=== PATIENT | male | born 1945 | race Caucasian/White ===

== ENCOUNTER 2018-12-31 00:05 | Observation (INO) ==
[2018-12-31 01:06] LABS: Basophils # 0.1 10*3/uL (0.0-0.2); Basophils % 1.1 % (0.0-0.8); Eosinophils # 0.3 10*3/uL (0.0-0.87); Hematocrit 38.5 VOL% (42.0-52.0); Hemoglobin 13.5 GM/DL (14.0-18.0); INR 0.9; Immature Granulocytes % 0.7 %; Immature Granulocytes Absolute 0.04 #; Lymphocytes # 1.9 10*3/uL (1.4-4.0); Lymphocytes % 34.6 % (21.2-54.2); Mean Corpuscular HGB Conc 35.1 GM/DL (32-36); Mean Corpuscular Volume 84.6 FL (87-102); Mean Platelet Volume 10.4 FL (9.6-12.0); Monocytes % 7.5 % (1.7-12.7); Neutrophils % 51.1 % (38.7-73.9); PT Patient Result 10.1 SECS (9.6-12.2); Platelet Count 231 T/CUMM (130-400); Red Blood Count 4.55 MC/CUMM (3.8-5.5); White Blood Count 5.4 T/CUMM (4-12)
[2018-12-31 01:29] LABS: Albumin 3.8 G/DL (3.4-5.0); Bilirubin,Total 0.5 MG/DL (0.2-1.0); Calcium 9.4 MG/DL (8.5-10.1); Total Protein 7.1 G/DL (6.4-8.3)
[2018-12-31] MEDS ORDERED: ACETAMINOPHEN 325 MG TABLET PO PRN (04:26)
[2018-12-31] MEDS ORDERED: DEXTROSE 50% 25 GM/50 ML VIAL IV PRN (04:26)
[2018-12-31] MEDS ORDERED: ONDANSETRON 4 MG/2 ML VIAL IV PRN (04:26)
[2018-12-31] MEDS ORDERED: GLUCAGON 1 MG VIAL IM PRN (04:26)
[2018-12-31] MEDS ORDERED: DOCUSATE SODIUM 100 MG CAPSULE PO PRN (04:26)
[2018-12-31 05:31] LABS: Apearance,Urine CLEAR (Clear); Bilirubin,Urine Negative (Negative); Blood, Urine Negative (Negative); Glucose,Urine (UA) >=500 mg/dL (Negative); Ketones,Urine Negative (Negative); Nitrite,Urine Negative (Negative); Protein,Urine Negative; RBC,Urine 1 /HPF (0-4); Urine Color Straw (Yellow); Urine Specific Gravity 1.003 (1.001-1.035); Urine Urobilinogen < 2.0 EU/DL (0.2-1.0); WBC,Urine <1 /HPF (0-6)
[2018-12-31 05:41] LABS: Basophils % 0.7 % (0.0-0.8); Eosinophils # 0.1 10*3/uL (0.0-0.87); Hematocrit 42.3 VOL% (42.0-52.0); Hemoglobin 14.1 GM/DL (14.0-18.0); Immature Granulocytes % 0.5 %; Immature Granulocytes Absolute 0.03 #; Lymphocytes # 1.3 10*3/uL (1.4-4.0); Lymphocytes % 22.4 % (21.2-54.2); Mean Corpuscular HGB Conc 33.3 GM/DL (32-36); Mean Corpuscular Volume 86.9 FL (87-102); Mean Platelet Volume 10.4 FL (9.6-12.0); Monocytes % 5.2 % (1.7-12.7); Neutrophils % 69.2 % (38.7-73.9); Platelet Count 267 T/CUMM (130-400); Red Blood Count 4.87 MC/CUMM (3.8-5.5); White Blood Count 5.6 T/CUMM (4-12)
[2018-12-31 06:08] LABS: Folate 10.4 NG/ML (5.4-24.0); Vitamin B12 376 PG/ML (211-911)
[2018-12-31 06:15] LABS: % Iron Saturation 14.2 % (18-50); Ferritin 91.1 ng/ml (26-388); Risk Ratio 5.21; Thyroid Stimulating Hormone 1.12 uIU/ml (0.358-3.74); VLDL CHOLESTEROL 31.4 MG/DL
[2018-12-31 07:15] LABS: Sedimentation Rate-Westergren 25 MM/HR (0-20)
[2018-12-31] MEDS: INSULIN LISPRO 100 UNIT/ML SUBCUT SCH ×2 (08:47→12:37)
[2018-12-31] MEDS ORDERED: PANTOPRAZOLE 40 MG TABLET PO SCH (09:00)
[2018-12-31] MEDS ORDERED: TAMSULOSIN 0.4 MG CAPSULE PO SCH (09:00)
[2018-12-31] MEDS ORDERED: Glucosam-Chon-Msm1-C-Mang-Bosw [Osteo Bi-Flex Triple Strength] 1 PO SCH (09:00)
[2018-12-31] MEDS ORDERED: ENOXAPARIN 40 MG/0.4 ML SYRINGE SUBCUT SCH (09:00)
[2018-12-31] MEDS ORDERED: MULTIVITAMIN (OCUVITE) TABLET PO SCH (09:00)
[2018-12-31] MEDS ORDERED: FERROUS SULFATE 325 MG TABLET PO SCH (12:00)
[2018-12-31] MEDS ORDERED: ASPIRIN EC 81 MG TABLET PO SCH (12:00)
[2018-12-31 16:27] VITALS: BP 116/70
[2019-01-01 10:30] LABS: Hemoglobin A1 (Alkaline) 97.7 % (96.5-98.5); Hemoglobin A2 (Alkaline) 2.3 % (1.5-3.5)
== END 2018-12-31 16:15 | disposition home or self-care (01) ==
LOC: EDBD → EDUNIT# → N.ED 00:05 → N.EDINP 00:05 → N.TELEN 03:08
PROVIDERS: ADMIT Internal Medicine; ATTEND Internal Medicine

== ENCOUNTER 2019-11-13 05:44 | Day surgery (SDC) ==
[2019-11-13] MEDS ORDERED: VANCOMYCIN 1,000 MG VIAL ONE (05:49)
[2019-11-13] MEDS ORDERED: ceFAZolin 1,000 MG VIAL ONE (05:49)
[2019-11-13] MEDS ORDERED: VANCOMYCIN INJ 1,000 MG in SODIUM CHLORIDE 0.9% 250 ML IV ONE (06:30)
[2019-11-13] MEDS ORDERED: ceFAZolin 1,000 MG in SYRINGE 1 EACH IV ONE (06:30)
[2019-11-13] MEDS ORDERED: FAMOTIDINE 20 MG TABLET PO ONE (06:32)
[2019-11-13] MEDS ORDERED: DIAZEPAM 5 MG TABLET PO ONE (06:32)
[2019-11-13] MEDS ORDERED: BACITRACIN OINT 0.9 GM PACK TOP ONE (06:36)
[2019-11-13] MEDS ORDERED: TRANEXAMIC ACID 1,000 MG/10 ML VIAL ONE (06:37)
[2019-11-13] MEDS ORDERED: FAMOTIDINE 20 MG TABLET ONE (06:39)
[2019-11-13] MEDS ORDERED: DIAZEPAM 5 MG TABLET ONE (06:39)
[2019-11-13] MEDS ORDERED: DEXAMETHASONE 4 MG/1 ML VIAL ONE (06:59)
[2019-11-13] MEDS ORDERED: ROPIVACAINE 0.5% 30 ML VIAL ONE (06:59)
[2019-11-13] MEDS ORDERED: LIDOCAINE 1% 5 ML VIAL ONE (06:59)
[2019-11-13] MEDS ORDERED: LACTATED RINGERS 1,000 ML IV SCH (07:00)
[2019-11-13] MEDS ORDERED: MAGNESIUM HYDROXIDE SUSP 30 ML UDCUP PO PRN (10:38)
[2019-11-13] MEDS ORDERED: diphenhydrAMINE CAP 25 MG CAPSULE PO PRN (10:38)
[2019-11-13] MEDS ORDERED: MORPHINE 4 MG/1 ML VIAL IV PRN (10:38)
[2019-11-13] MEDS ORDERED: ZALEPLON 5 MG CAPSULE PO PRN (10:38)
[2019-11-13] MEDS ORDERED: ONDANSETRON 4 MG/2 ML VIAL IV PRN (10:38)
[2019-11-13] MEDS ORDERED: DEXTROSE 50% 25 GM/50 ML VIAL IV PRN (10:41)
[2019-11-13] MEDS ORDERED: GLUCAGON 1 MG VIAL IM PRN (10:41)
[2019-11-13] MEDS ORDERED: LIDOCAINE 2% 5 ML VIAL ONE (10:58)
[2019-11-13] MEDS ORDERED: fentaNYL 100 MCG/2 ML VIAL ONE (10:58)
[2019-11-13] MEDS ORDERED: GLYCOPYRROLATE 0.4 MG/2 ML VIAL ONE (10:58)
[2019-11-13] MEDS ORDERED: PHENYLEPHRINE 1 MG/10 ML SYRINGE IV ONE (10:58)
[2019-11-13] MEDS ORDERED: SODIUM CHLORIDE 0.9% 100 ML IV ONE (10:58)
[2019-11-13] MEDS ORDERED: propofoL 200 MG/20 ML VIAL IV ONE (10:58)
[2019-11-13] MEDS ORDERED: MIDAZOLAM 2 MG/2 ML VIAL ONE (10:59)
[2019-11-13] MEDS: INSULIN LISPRO 100 UNIT/ML SUBCUT SCH ×3 (13:48→21:53)
[2019-11-13] MEDS: ceFAZolin 2,000 MG in PREMIX 1 EACH IV SCH ×2 (14:01→21:55)
[2019-11-13] MEDS: KETOROLAC 15 MG/1 ML VIAL IV SCH ×2 (14:02→21:52)
[2019-11-13] MEDS: LACTATED RINGERS 1,000 ML IV SCH ×2 (14:32→21:51)
[2019-11-13] MEDS: TAMSULOSIN 0.4 MG CAPSULE PO SCH (21:53)
[2019-11-13] MEDS: ASCORBIC ACID 500 MG TABLET PO SCH (21:53)
[2019-11-13] MEDS: MAGNESIUM CHLORIDE 64 MG TABLET PO SCH (21:53)
[2019-11-13] MEDS: DOCUSATE SODIUM 100 MG CAPSULE PO SCH (21:53)
[2019-11-14] MEDS: KETOROLAC 15 MG/1 ML VIAL IV SCH (02:47)
[2019-11-14] MEDS: MORPHINE 4 MG/1 ML VIAL IV PRN ×2 (02:49→11:32)
[2019-11-14] MEDS: LACTATED RINGERS 1,000 ML IV SCH (04:00)
[2019-11-14 05:44] LABS: Basophils % 0.1 % (0.0-0.8); Eosinophils % 0.5 % (0.00-10.9); Hemoglobin 11.2 GM/DL (14.0-18.0); Immature Granulocytes % 0.3 %; Immature Granulocytes Absolute 0.03 #; Mean Corpuscular HGB Conc 33.9 GM/DL (32-36); Mean Corpuscular Volume 86.4 FL (87-102); Mean Platelet Volume 10.3 FL (9.6-12.0); Monocytes % 7.5 % (1.7-12.7); Neutrophils % 79.6 % (38.7-73.9); Platelet Count 197 T/CUMM (130-400); Red Blood Count 3.82 MC/CUMM (3.8-5.5); Red Cell Distribution Width 13.5 % (9.3-17.3); White Blood Count 8.7 T/CUMM (4-12)
[2019-11-14] MEDS ORDERED: FONDAPARINUX 2.5 MG/0.5 ML SYRINGE SUBCUT SCH (06:00)
[2019-11-14 06:12] LABS: Calcium 8.6 MG/DL (8.5-10.1); Osmolality,Calculated 278.5 MOS/KG (273-304)
[2019-11-14 06:16] LABS: Albumin 2.8 G/DL (3.4-5.0); Bilirubin,Total 0.9 MG/DL (0.2-1.0); Calcium 8.7 MG/DL (8.5-10.1); Osmolality,Calculated 277.7 MOS/KG (273-304); Total Protein 5.9 G/DL (6.4-8.3)
[2019-11-14 06:17] LABS: % Iron Saturation 14.1 % (18-50); Ferritin 100.2 ng/ml (26-388)
[2019-11-14 06:28] LABS: Folate 10.9 NG/ML (5.4-24.0)
[2019-11-14] MEDS ORDERED: IRON SUCROSE 300 MG in SODIUM CHLORIDE 0.9% 100 ML IV ONE (08:00)
[2019-11-14] MEDS ORDERED: GLIMEPIRIDE 2 MG TABLET PO SCH (08:00)
[2019-11-14] MEDS ORDERED: PANTOPRAZOLE 40 MG TABLET PO SCH (09:00)
[2019-11-14] MEDS ORDERED: lisinopriL 20 MG TABLET PO SCH (09:00)
[2019-11-14] MEDS ORDERED: GLUCOSAMINE 500 MG TABLET PO SCH (09:00)
[2019-11-14] MEDS ORDERED: POTASSIUM CHLORIDE 20 MEQ TABLET PO SCH (09:00)
[2019-11-14] MEDS ORDERED: MULTIVITAMIN (OCUVITE) TABLET PO SCH (09:00)
[2019-11-14] MEDS ORDERED: sitaGLIPtin 25 MG TABLET PO SCH (09:00)
[2019-11-14] MEDS: TAMSULOSIN 0.4 MG CAPSULE PO SCH (11:10)
[2019-11-14] MEDS: DOCUSATE SODIUM 100 MG CAPSULE PO SCH (11:10)
[2019-11-14] MEDS: ASCORBIC ACID 500 MG TABLET PO SCH (11:10)
[2019-11-14 11:30] VITALS: BP 131/69
[2019-11-14] MEDS: MAGNESIUM CHLORIDE 64 MG TABLET PO SCH (11:31)
== END 2019-11-14 14:56 | disposition home health service (06) ==
LOC: N.OR 05:44 → N.SDSINP 05:44 → N.3E 12:08 → N.OR 11-14 14:56
PROVIDERS: ATTEND Orthopaedic Surgery